=== PATIENT | female | born 1935 | race Two or more races ===

== ENCOUNTER 2023-05-04 07:57 | Inpatient (IN) | payer OTHER ==
[~2023-05-04] VITALS: Ht 152.4 cm; Wt 45.4 kg
[2023-05-04] MEDS ORDERED: NORVASC5 MG PO (08:24)
[2023-05-04] MEDS ORDERED: PROTONIX20 MG PO (08:25)
[2023-05-04] MEDS ORDERED: SINGULAIR10 MG PO (08:25)
[2023-05-04] MEDS ORDERED: CELEXA10 MG PO (08:25)
[2023-05-04 09:33] LABS: MEAN CELL VOLUME 106.1 fL (80.00-100.00); MEAN CORPUSCULAR HGB CONC 31.4 g/dl (32.0-36.0); PLATELET COUNT 160 K/uL (150-450); RED BLOOD COUNT 1.85 M/uL (4.00-6.00); RED CELL DISTRIBUTION WIDTH 19.6 % (11.5-14.5)
[2023-05-04 10:01] LABS: CALCIUM 8.3 mg/dL (8.5-10.1); CREATININE SERUM 2.16 mg/dL (0.55-1.02); GFR 21.51; POTASSIUM 4.85 mEq/L (3.5-5.1)
[2023-05-04 10:05] LABS: INR 1.57; PARTIAL THROMBOPLASTIN TIME 35.7 SECONDS (22.0-34.0)
[2023-05-04 10:08] LABS: PROTHROMBIN TIME 15.9 SECONDS (9.0-11.5)
[2023-05-04 10:33] LABS: MEAN CORPUSCULAR HEMOGLOBIN 32.9 pg (27.00-32.0)
[2023-05-04 10:34] LABS: HEMATOCRIT 19.6 % (36.0-45.00); HEMOGLOBIN 6.1 g/dL (12.0-15.00)
[2023-05-04 19:54] LABS: URINE APPEARANCE Cloudy; URINE BILIRRUBIN Negative (NEGATIVE); URINE BLOOD Negative; URINE COLOR Yellow; URINE GLUCOSE Negative (NEGATIVE); URINE LEUKOCYTE Negative; URINE NITRATE Negative; URINE UROBILINOGEN 0.2 E.U./dl
[2023-05-04 19:55] LABS: URINE BACTERIA 228.4 uL (0.0-1933); URINE EPITHELIAL CELLS 5.1 uL (0.0-38.8); URINE WBC 6.8 uL (0.0-23.2)
[2023-05-04 20:19] LABS: URINE PROTEIN 100 (NEGATIVE); URINE RBC 0.5 uL (0.0-20.8)
[2023-05-04 21:48] LABS: COL EPI 151 SECONDS (82-175)
[2023-05-04 21:55] LABS: PARTIAL THROMBOPLASTIN TIME 34.2 SECONDS (22.0-34.0)
[2023-05-04 22:00] LABS: INR 1.63; PROTHROMBIN TIME 16.5 SECONDS (9.0-11.5)
[2023-05-04 22:11] LABS: D DIMER 0.33 MG/L
[2023-05-06 01:23] LABS: HEMATOCRIT 28.5 % (36.0-45.00); MEAN CELL VOLUME 88.2 fL (80.00-100.00); MEAN CORPUSCULAR HGB CONC 30.5 g/dl (32.0-36.0); RED BLOOD COUNT 3.23 M/uL (4.00-6.00)
[2023-05-06 01:27] LABS: MEAN CORPUSCULAR HEMOGLOBIN 26.9 pg (27.00-32.0)
[2023-05-06 01:28] LABS: PLATELET COUNT 124 K/uL (150-450)
[2023-05-06 01:29] LABS: HEMOGLOBIN 8.7 g/dL (12.0-15.00)
[2023-05-07 02:34] LABS: HEMATOCRIT 41.4 % (36.0-45.00); HEMOGLOBIN 13.5 g/dL (12.0-15.00); MEAN CELL VOLUME 87.1 fL (80.00-100.00); MEAN CORPUSCULAR HEMOGLOBIN 28.4 pg (27.00-32.0); MEAN CORPUSCULAR HGB CONC 32.6 g/dl (32.0-36.0); RED BLOOD COUNT 4.75 M/uL (4.00-6.00); RED CELL DISTRIBUTION WIDTH 15.8 % (11.5-14.5)
[2023-05-07 02:47] LABS: ALBUMIN 3.3 gm/dL (3.4-5.0); ALKALINE PHOSPHATASE 61 U/L (50-136); ALT/SGPT 22 U/L (12-78); AST/SGOT 18 U/L (15-37); BILIRUBIN TOTAL 1.08 mg/dL (0.3-1.2); BLOOD UREA NITROGEN 40 mg/dL (7-18); BUN CREA RATIO 23 (7.0-25.0); CALCIUM 7.3 mg/dL (8.5-10.1); CARBON DIOXIDE 22 mEq/L (21-32); CHLORIDE 112 mmol/L (98-107); CREATININE SERUM 1.76 mg/dL (0.55-1.02); GFR 27.25; GLOBULINA 3.3 G/DL (2.4-3.5); GLUCOSE FASTING 145 mg/dL (65-100); LDH 455 U/L (84-246); OSMOLALITY SERUM 301 MOSM/KG (275-295); PHOSPHOROUS 4.1 mg/dL (2.5-4.9); SODIUM 145 mmol/L (136-145); TOTAL PROTEIN 6.6 gm/dL (6.4-8.2)
[2023-05-07 02:57] LABS: PLATELET COUNT 84 K/uL (150-450)
[2023-05-07 03:24] LABS: ANION GAP 14 (10.0-20.0)
[2023-05-07 03:25] LABS: C-REACTIVE PROTEIN < 0.29 MG/DL (0.00-0.29); POTASSIUM 2.97 mEq/L (3.5-5.1)
[2023-05-07 07:13] LABS: PH,URINE 5.5 (5.0-8.0); URINE APPEARANCE Clear; URINE BILIRRUBIN Negative (NEGATIVE); URINE BLOOD Moderate; URINE COLOR Yellow; URINE GLUCOSE Negative (NEGATIVE); URINE LEUKOCYTE Negative; URINE NITRATE Negative; URINE UROBILINOGEN 0.2 E.U./dl
[2023-05-07 07:18] LABS: URINE EPITHELIAL CELLS 4.8 uL (0.0-38.8); URINE PROTEIN 100 (NEGATIVE); URINE RBC 139.8 uL (0.0-20.8); URINE WBC 19.8 uL (0.0-23.2)
[2023-05-08 10:07] LABS: HEMATOCRIT 40.2 % (36.0-45.00); HEMOGLOBIN 13.4 g/dL (12.0-15.00); MEAN CELL VOLUME 88.1 fL (80.00-100.00); MEAN CORPUSCULAR HEMOGLOBIN 29.3 pg (27.00-32.0); MEAN CORPUSCULAR HGB CONC 33.3 g/dl (32.0-36.0); RED BLOOD COUNT 4.56 M/uL (4.00-6.00); RED CELL DISTRIBUTION WIDTH 16.4 % (11.5-14.5)
[2023-05-08 11:13] LABS: PLATELET COUNT 48 K/uL (150-450)
[2023-05-08 15:26] LABS: ALBUMIN 2.8 gm/dL (3.4-5.0); BILIRUBIN TOTAL 0.88 mg/dL (0.3-1.2); CALCIUM 7.1 mg/dL (8.5-10.1); CREATININE SERUM 1.41 mg/dL (0.55-1.02); GFR 35.2; GLOBULINA 3.1 G/DL (2.4-3.5); POTASSIUM 3.67 mEq/L (3.5-5.1); TOTAL PROTEIN 5.9 gm/dL (6.4-8.2)
[2023-05-10 08:19] LABS: ALBUMIN 2.3 gm/dL (3.4-5.0); BILIRUBIN TOTAL 0.93 mg/dL (0.3-1.2); CALCIUM 6.9 mg/dL (8.5-10.1); CREATININE SERUM 1.21 mg/dL (0.55-1.02); GFR 41.99; GLOBULINA 2.7 G/DL (2.4-3.5); POTASSIUM 3.72 mEq/L (3.5-5.1)
[2023-05-10 08:50] LABS: HEMOGLOBIN 11.6 g/dL (12.0-15.00); MEAN CELL VOLUME 89.5 fL (80.00-100.00); MEAN CORPUSCULAR HEMOGLOBIN 28.8 pg (27.00-32.0); MEAN CORPUSCULAR HGB CONC 32.1 g/dl (32.0-36.0); RED BLOOD COUNT 4.02 M/uL (4.00-6.00); RED CELL DISTRIBUTION WIDTH 16.5 % (11.5-14.5)
[2023-05-10 10:31] LABS: PLATELET COUNT 19 K/uL (150-450)
[2023-05-11 06:58] LABS: HEMATOCRIT 29.8 % (36.0-45.00); HEMOGLOBIN 10.2 g/dL (12.0-15.00); MEAN CELL VOLUME 87.6 fL (80.00-100.00); MEAN CORPUSCULAR HEMOGLOBIN 29.9 pg (27.00-32.0); MEAN CORPUSCULAR HGB CONC 34.2 g/dl (32.0-36.0); RED BLOOD COUNT 3.41 M/uL (4.00-6.00); RED CELL DISTRIBUTION WIDTH 16.4 % (11.5-14.5)
[2023-05-11 07:26] LABS: PLATELET COUNT 32 K/uL (150-450)
[2023-05-11 12:21] LABS: ALBUMIN 2.3 gm/dL (3.4-5.0); BILIRUBIN TOTAL 0.88 mg/dL (0.3-1.2); CALCIUM 6.6 mg/dL (8.5-10.1); CREATININE SERUM 1.19 mg/dL (0.55-1.02); GFR 42.81; GLOBULINA 2.7 G/DL (2.4-3.5); POTASSIUM 3.17 mEq/L (3.5-5.1)
[2023-05-12 19:51] LABS: HEMATOCRIT 41.6 % (36.0-45.00); HEMOGLOBIN 14.4 g/dL (12.0-15.00); MEAN CELL VOLUME 86.1 fL (80.00-100.00); MEAN CORPUSCULAR HEMOGLOBIN 29.7 pg (27.00-32.0); MEAN CORPUSCULAR HGB CONC 34.5 g/dl (32.0-36.0); RED BLOOD COUNT 4.84 M/uL (4.00-6.00); RED CELL DISTRIBUTION WIDTH 16.4 % (11.5-14.5)
[2023-05-12 20:28] LABS: PLATELET COUNT 23 K/uL (150-450)
[2023-05-13 09:15] LABS: ALBUMIN 2.5 gm/dL (3.4-5.0); BILIRUBIN TOTAL 1.43 mg/dL (0.3-1.2); CALCIUM 6.9 mg/dL (8.5-10.1); CREATININE SERUM 0.93 mg/dL (0.55-1.02); GFR 56.89; GLOBULINA 2.9 G/DL (2.4-3.5); POTASSIUM 3.71 mEq/L (3.5-5.1); TOTAL PROTEIN 5.4 gm/dL (6.4-8.2)
[2023-05-13 23:56] LABS: HEMATOCRIT 38.2 % (36.0-45.00); HEMOGLOBIN 12.8 g/dL (12.0-15.00); MEAN CELL VOLUME 87.1 fL (80.00-100.00); MEAN CORPUSCULAR HEMOGLOBIN 29.2 pg (27.00-32.0); MEAN CORPUSCULAR HGB CONC 33.5 g/dl (32.0-36.0); RED BLOOD COUNT 4.39 M/uL (4.00-6.00); RED CELL DISTRIBUTION WIDTH 16.3 % (11.5-14.5)
[2023-05-14 04:33] LABS: PLATELET COUNT 92 K/uL (150-450)
== END 2023-05-14 19:55 | disposition home or self-care (01) | DRG 871 ==
LOC: ER 07:57 → ICU-2 20:16 → ICU 20:16 → MEDJ 05-08 13:54
PROVIDERS: Emergency Medicine; General Practice; Internal Medicine; Internal Medicine Hematology & Oncology; Internal Medicine Infectious Disease; ADMIT Specialist; ATTEND Specialist
PROC: BW21ZZZ Computerized Tomography (CT Scan) of Abdomen and Pelvis (ICD-10-PCS; principal; 2023-05-04)
PROC: BB24ZZZ Computerized Tomography (CT Scan) of Bilateral Lungs (ICD-10-PCS; 2023-05-04)
PROC: 30233N1 Transfusion of Nonautologous Red Blood Cells into Peripheral Vein, Percutaneous Approach (ICD-10-PCS; 2023-05-04)
PROC: 30233K1 Transfusion of Nonautologous Frozen Plasma into Peripheral Vein, Percutaneous Approach (ICD-10-PCS; 2023-05-04)
PROC: 02HV33Z Insertion of Infusion Device into Superior Vena Cava, Percutaneous Approach (ICD-10-PCS; 2023-05-06)
PROC: 30233R1 Transfusion of Nonautologous Platelets into Peripheral Vein, Percutaneous Approach (ICD-10-PCS; 2023-05-06)
DX: A41.9 Sepsis, unspecified organism (principal); R57.1 Hypovolemic shock; N17.8 Other acute kidney failure; D61.818 Other pancytopenia; K92.89 Other specified diseases of the digestive system; E86.1 Hypovolemia; I95.9 Hypotension, unspecified; D72.818 Other decreased white blood cell count; D72.828 Other elevated white blood cell count; N18.9 Chronic kidney disease, unspecified; K21.9 Gastro-esophageal reflux disease without esophagitis; E87.6 Hypokalemia; K57.90 Diverticulosis of intestine, part unspecified, without perforation or abscess without bleeding; L80 Vitiligo; D69.6 Thrombocytopenia, unspecified; D50.0 Iron deficiency anemia secondary to blood loss (chronic); G30.9 Alzheimer's disease, unspecified; F02.80 Dementia in other diseases classified elsewhere, unspecified severity, without behavioral disturbance, psychotic disturbance, mood disturbance, and anxiety; F32.89 Other specified depressive episodes

== ENCOUNTER 2023-08-16 15:45 | Inpatient (IN) | payer OTHER ==
[~2023-08-16] VITALS: Ht 160 cm; Wt 40.8 kg
[~2023-08-16 15:45] MED LIST: CELEXA10 MG PO; NORVASC5 MG PO; PROTONIX20 MG PO; SINGULAIR10 MG PO
[2023-08-16 17:58] LABS: MEAN CELL VOLUME 91.4 fL (80.00-100.00); MEAN CORPUSCULAR HGB CONC 29.6 g/dl (32.0-36.0); PLATELET COUNT 637 K/uL (150-450); RED BLOOD COUNT 2.43 M/uL (4.00-6.00); RED CELL DISTRIBUTION WIDTH 17.7 % (11.5-14.5)
[2023-08-16 18:23] LABS: ALBUMIN 2.5 gm/dL (3.4-5.0); BILIRUBIN TOTAL 0.63 mg/dL (0.3-1.2); CALCIUM 8.1 mg/dL (8.5-10.1); GLOBULINA 3.9 G/DL (2.4-3.5); TOTAL PROTEIN 6.4 gm/dL (6.4-8.2)
[2023-08-16 18:35] LABS: MEAN CORPUSCULAR HEMOGLOBIN 27.1 pg (27.00-32.0)
[2023-08-16 18:38] LABS: HEMATOCRIT 22.2 % (36.0-45.00); HEMOGLOBIN 6.6 g/dL (12.0-15.00)
[2023-08-16 18:41] LABS: PH,URINE 5.5 (5.0-8.0); URINE APPEARANCE Turbid; URINE BILIRRUBIN Negative (NEGATIVE); URINE BLOOD Moderate; URINE COLOR Yellow; URINE GLUCOSE Negative (NEGATIVE); URINE LEUKOCYTE Large; URINE NITRATE Negative
[2023-08-16 18:45] LABS: URINE BACTERIA 4354.5 uL (0.0-1933); URINE EPITHELIAL CELLS 22.7 uL (0.0-38.8); URINE RBC 70.6 uL (0.0-20.8)
[2023-08-16 18:54] LABS: GFR 9.42
[2023-08-16 18:55] LABS: CREATININE SERUM 4.42 mg/dL (0.55-1.02)
[2023-08-16 18:56] LABS: POTASSIUM 6.46 mEq/L (3.5-5.1)
[2023-08-16 18:57] LABS: URINE PROTEIN 100 (NEGATIVE); URINE WBC > 5548.3 uL (0.0-23.2)
[2023-08-16 18:58] LABS: URINE YEAST FEW /hpf
[2023-08-16 19:45] LABS: D DIMER 0.98 MG/L
[2023-08-16 22:40] LABS: ALBUMIN 2.1 gm/dL (3.4-5.0); BILIRUBIN TOTAL 0.52 mg/dL (0.3-1.2); CALCIUM 6.8 mg/dL (8.5-10.1); CREATININE SERUM 3.61 mg/dL (0.55-1.02); GFR 11.89; GLOBULINA 3.8 G/DL (2.4-3.5); POTASSIUM 4.72 mEq/L (3.5-5.1); TOTAL PROTEIN 5.9 gm/dL (6.4-8.2)
[2023-08-16 22:43] LABS: INR 1.99
[2023-08-16 22:46] LABS: ABG PH 7.333 (7.35-7.45); ABG PO2 187.3 mmHg (80-100); BASE EXCESS -9.7 mmol/l; SaO2 99.5 %
[2023-08-16 22:47] LABS: BICARBONATE 14.5 mmol/l (23-25); Tco2 15.4 mmol/l; allen test SATISFACTORY; o2 28 %; puncture site RADIAL LEFT
[2023-08-16 22:48] LABS: PARTIAL THROMBOPLASTIN TIME 68.6 SECONDS (22.0-34.0); PROTHROMBIN TIME 19.9 SECONDS (9.0-11.5)
[2023-08-17 01:53] LABS: MAGNESIUM 1.9 mg/dL (1.8-2.4); PHOSPHOROUS 5.2 mg/dL (2.5-4.9)
[2023-08-17 10:38] LABS: ABG PH 7.382 (7.35-7.45); ABG PO2 85.7 mmHg (80-100); ABG pCO2 28.2 mmHg (35-45); BICARBONATE 16.4 mmol/l (23-25); Tco2 17.3 mmol/l
[2023-08-17 10:39] LABS: allen test SATISFACTORY; o2 32 %; puncture site RADIAL LEFT
[2023-08-17 18:48] LABS: ob NEGATIVE (NEGATIVE)
[2023-08-18 18:49] LABS: HEMATOCRIT 49.3 % (36.0-45.00); HEMOGLOBIN 16.1 g/dL (12.0-15.00); MEAN CELL VOLUME 88.3 fL (80.00-100.00); MEAN CORPUSCULAR HEMOGLOBIN 28.9 pg (27.00-32.0); MEAN CORPUSCULAR HGB CONC 32.7 g/dl (32.0-36.0); PLATELET COUNT 468 K/uL (150-450); RED BLOOD COUNT 5.59 M/uL (4.00-6.00); RED CELL DISTRIBUTION WIDTH 15.9 % (11.5-14.5)
[2023-08-18 19:16] LABS: ALBUMIN 2.4 gm/dL (3.4-5.0); BILIRUBIN TOTAL 1.01 mg/dL (0.3-1.2); CALCIUM 7.7 mg/dL (8.5-10.1); MAGNESIUM 1.6 mg/dL (1.8-2.4); TOTAL PROTEIN 7.4 gm/dL (6.4-8.2)
[2023-08-18 19:40] LABS: GFR 10.72
[2023-08-18 19:44] LABS: CREATININE SERUM 3.95 mg/dL (0.55-1.02)
[2023-08-18 19:45] LABS: POTASSIUM 2.54 mEq/L (3.5-5.1)
[2023-08-19 00:16] LABS: ob POSITIVE (NEGATIVE)
[2023-08-19 06:53] LABS: HEMATOCRIT 46.7 % (36.0-45.00); HEMOGLOBIN 15.5 g/dL (12.0-15.00); MEAN CELL VOLUME 88.6 fL (80.00-100.00); MEAN CORPUSCULAR HEMOGLOBIN 29.4 pg (27.00-32.0); MEAN CORPUSCULAR HGB CONC 33.1 g/dl (32.0-36.0); PLATELET COUNT 361 K/uL (150-450); RED BLOOD COUNT 5.27 M/uL (4.00-6.00); RED CELL DISTRIBUTION WIDTH 15.6 % (11.5-14.5)
[2023-08-19 07:45] LABS: ALBUMIN 2.3 gm/dL (3.4-5.0); CALCIUM 7.3 mg/dL (8.5-10.1); GFR 11.42; PHOSPHOROUS 4.5 mg/dL (2.5-4.9); T4 TOTAL 4.2 UG/DL (4.8-13.9)
[2023-08-19 07:52] LABS: MAGNESIUM 1.4 mg/dL (1.8-2.4); POTASSIUM 2.84 mEq/L (3.5-5.1)
[2023-08-19 07:53] LABS: CREATININE SERUM 3.74 mg/dL (0.55-1.02); TSH 6.93 uIU/mL (0.358-3.74)
[2023-08-19 14:33] LABS: INR 1.68
[2023-08-20 08:40] LABS: HEMATOCRIT 37.8 % (36.0-45.00); HEMOGLOBIN 12.6 g/dL (12.0-15.00); MEAN CELL VOLUME 89.1 fL (80.00-100.00); MEAN CORPUSCULAR HEMOGLOBIN 29.7 pg (27.00-32.0); MEAN CORPUSCULAR HGB CONC 33.3 g/dl (32.0-36.0); PLATELET COUNT 160 K/uL (150-450); RED BLOOD COUNT 4.25 M/uL (4.00-6.00); RED CELL DISTRIBUTION WIDTH 15.6 % (11.5-14.5)
[2023-08-20 09:03] LABS: ALBUMIN 1.9 gm/dL (3.4-5.0); BILIRUBIN TOTAL 0.97 mg/dL (0.3-1.2); CALCIUM 6.8 mg/dL (8.5-10.1); CREATININE SERUM 3.42 mg/dL (0.55-1.02); GFR 12.66; GLOBULINA 3.7 G/DL (2.4-3.5); MAGNESIUM 1.5 mg/dL (1.8-2.4); PHOSPHOROUS 3.5 mg/dL (2.5-4.9); TOTAL PROTEIN 5.6 gm/dL (6.4-8.2)
[2023-08-20 09:10] LABS: POTASSIUM 2.48 mEq/L (3.5-5.1)
== END 2023-08-20 18:10 | disposition expired | DRG 872 ==
LOC: ER 15:45 → ICU-2 23:55 → ICU 23:55
PROVIDERS: Emergency Medicine; General Practice; Internal Medicine Endocrinology, Diabetes & Metabolism; Internal Medicine Nephrology; ADMIT Internal Medicine; ATTEND Internal Medicine
PROC: BW28ZZZ Computerized Tomography (CT Scan) of Head (ICD-10-PCS; principal; 2023-08-16)
PROC: 30233N1 Transfusion of Nonautologous Red Blood Cells into Peripheral Vein, Percutaneous Approach (ICD-10-PCS; 2023-08-17)
DX: A41.9 Sepsis, unspecified organism (principal); N17.8 Other acute kidney failure; N39.0 Urinary tract infection, site not specified; C93.10 Chronic myelomonocytic leukemia not having achieved remission; E87.1 Hypo-osmolality and hyponatremia; I12.9 Hypertensive chronic kidney disease with stage 1 through stage 4 chronic kidney disease, or unspecified chronic kidney disease; N18.9 Chronic kidney disease, unspecified; E03.8 Other specified hypothyroidism; Z66 Do not resuscitate; Z74.01 Bed confinement status; L80 Vitiligo; R57.1 Hypovolemic shock; K62.89 Other specified diseases of anus and rectum; D50.0 Iron deficiency anemia secondary to blood loss (chronic); F02.80 Dementia in other diseases classified elsewhere, unspecified severity, without behavioral disturbance, psychotic disturbance, mood disturbance, and anxiety; E86.0 Dehydration; G30.9 Alzheimer's disease, unspecified; Z88.6 Allergy status to analgesic agent; E87.6 Hypokalemia